=== PATIENT | female | born 1975 | race Caucasian/White ===

== ENCOUNTER 2017-10-04 22:49 | Emergency (ER) | payer MEDICAID ==
[~2017-10-04] VITALS: Ht 162.6 cm; Wt 59.1 kg
[2017-10-04 23:10] VITALS: BP 126/86; Ht 162.6 cm; Wt 59.1 kg
[2017-10-04] MEDS ORDERED: IBUPROFEN400 MG PO (23:14)
[2017-10-04] MEDS ORDERED: ACETAMINOPHEN500 M1 PO (23:15)
== END 2017-10-05 01:12 | disposition left against medical advice (07) ==
LOC: D.ER 22:49
DX: M25.562 Pain in left knee (principal)

== ENCOUNTER 2020-06-19 13:09 | Emergency (ER) | payer OTHER ==
[~2020-06-19] VITALS: Ht 162.6 cm; Wt 71.4 kg
[~2020-06-19 13:09] MED LIST: ACETAMINOPHEN500 M1 PO; IBUPROFEN400 MG PO
[2020-06-19 13:41] VITALS: BP 140/99; Ht 162.6 cm; Wt 71.4 kg
[2020-06-19] MEDS ORDERED: NAPROSYN500 MG PO (14:06)
[2020-06-19] MEDS ORDERED: ERYTHROMYCIN E400 MG PO (14:06)
== END 2020-06-19 14:40 | disposition home or self-care (01) ==
LOC: D.ER 13:09
DX: K04.7 Periapical abscess without sinus (principal); K08.89 Other specified disorders of teeth and supporting structures; Z72.0 Tobacco use